=== PATIENT | female | born 1945 | race Caucasian/White ===

== ENCOUNTER → 2018-10-26 | Outpatient (CLI) | payer MEDICARE, OTHER ==
[~2018-10-26] MED LIST: BENA20 PO; CLON.1 PO; LEVSOD100 PO
[2018-10-30 15:06] LABS: HPV 16 Negative (Negative); HPV 18 Negative (Negative); HPV OTHER HR TYPES Negative (Negative)
== END | disposition home or self-care (01) ==
LOC: LAB 15:02 → LAB SHORT 15:02
PROVIDERS: Nurse Practitioner Women's Health
DX: Z12.4 Encounter for screening for malignant neoplasm of cervix (principal); Z91.89 Other specified personal risk factors, not elsewhere classified
CPT/HCPCS: 87624; G0123

== ENCOUNTER 2018-12-21 05:57 | Day surgery (SDC) | payer MEDICARE, OTHER ==
[~2018-12-21] VITALS: Ht 165.1 cm; Wt 71.2 kg
[~2018-12-21 05:57] MED LIST changes: +ASCO500 PO; +CHOL10002; +DIVIGEL1 EAC1 TD; +FISH OIL 1,0001 EACH PO; +GLUC500 PO; +INOSITOL PO; +LOSA50 PO; +Lopressor 25 mg25 MG PO; +MEDR2.5 PO; +MULTI VITAMIN1 EACH PO; +NIACIN PO; +ZINC220 PO
--- NOTE | 2018-12-21 07:08 | NUR ---
Ambulatory in Day Surgery History, Chart, Medications and Allergies reviewed before start of procedure.Patient confirms NPO status and agrees with scheduled surgery. Patient reports completing Chlorhexadine shower X2 prior to admission to hospital.Surgical site prepped with 2% Chlorhexidine cloth wipe.
--- NOTE | 2018-12-21 08:12 | NUR ---
12/21/18 0812 Mikala Menendez PLACED INTRAOPERATIVELY BY DR. CHILDS
[2018-12-21 15:31] LABS: BASOPHILS ABSOLUTE AUTO 0.01 K/mm3 (0.00-0.23); BASOPHILS PERCENT AUTO 0 % (0-2); EOSINOPHILS PERCENT AUTO 0 % (0-6); Hematocrit 39.2 % (33.0-51.0); Hemoglobin 12.7 g/dL (11.5-16.0); IMMATURE GRAN ABSOLUTE AUTO 0.04 K/mm3 (0.00-0.10); IMMATURE GRAN PERCENT AUTO 0 % (0-1); LYMPHOCYTES PERCENT AUTO 3 % (21-46); MONOCYTES ABSOLUTE AUTO 0.21 K/mm3 (0.16-1.47); MONOCYTES PERCENT AUTO 2 % (4-13); Mean Corpuscular HGB 30.2 pg (26.0-34.0); Mean Corpuscular HGB Conc 32.4 g/dL (31.5-36.5); Mean Corpuscular Volume 93 fL (80-100); Mean Platelet Volume 9.5 fL (9.1-12.4); NEUTROPHILS ABSOLUTE AUTO 11.65 K/mm3 (1.96-9.15); NEUTROPHILS PERCENT AUTO 95 % (41-73); Platelet Count 297 K/mm3 (150-400); RDW Coefficient Variation 12.6 % (11.7-14.2); RDW Standard Deviation 43.5 fL (35.1-46.3); White Blood Cell Count 12.31 K/mm3 (4.00-11.30)
--- NOTE | 2018-12-21 18:28 | NUR ---
SUMMARY VSS, PAIN TOLERABLE WITH MORPHINE ROOFING LAYER, OOB W/ ASSIST TO CHAIR, TOLERATED WELL, NO ACUTE CHANGES THIS SHIFT.
--- NOTE | 2018-12-22 05:05 | NUR ---
VAGINAL PACKING REMOVED AT THIS TIME. THERE WAS A PORTION HANGING OUT AND THE PATIENT HAD HAD DIARRHEA WHICH HAD COATED THE LOOSE PACKING, SO FOR SANITARY REASONS IT WAS REMOVED.
--- NOTE | 2018-12-22 06:23 | NUR ---
SHIFT SUMMARY PT IS POD 1 HYSTER WITH SLING. LAMBERT REMOVED THIS MORNING, PACKING REMOVED WELL FOR SANITARY REASONS, PT HAD MULTIPLE BOUTS OF DIARRHA AND THE VAGINAL PACKING REMOVED BECAUSE IT WAS SOILED WITH STOOL. SHE WAS NAUSEATED OVERNIGHT AND MEDICATED X2. PT IS A&O, ABLE TO MAKE NEEDS KNOWN. WILL CTM UNTIL PASS TO NEXT SHIFT.
[2018-12-22 06:51] LABS: BASOPHILS ABSOLUTE AUTO 0.02 K/mm3 (0.00-0.23); BASOPHILS PERCENT AUTO 0 % (0-2); EOSINOPHILS ABSOLUTE AUTO 0.05 K/mm3 (0.00-0.68); EOSINOPHILS PERCENT AUTO 1 % (0-6); Hematocrit 36.8 % (33.0-51.0); Hemoglobin 11.9 g/dL (11.5-16.0); IMMATURE GRAN ABSOLUTE AUTO 0.02 K/mm3 (0.00-0.10); IMMATURE GRAN PERCENT AUTO 0 % (0-1); LYMPHOCYTES ABSOLUTE AUTO 0.59 K/mm3 (0.84-5.20); LYMPHOCYTES PERCENT AUTO 6 % (21-46); MONOCYTES ABSOLUTE AUTO 0.77 K/mm3 (0.16-1.47); MONOCYTES PERCENT AUTO 8 % (4-13); Mean Corpuscular HGB 30.7 pg (26.0-34.0); Mean Corpuscular HGB Conc 32.3 g/dL (31.5-36.5); Mean Corpuscular Volume 95 fL (80-100); Mean Platelet Volume 9.3 fL (9.1-12.4); NEUTROPHILS ABSOLUTE AUTO 8.48 K/mm3 (1.96-9.15); NEUTROPHILS PERCENT AUTO 85 % (41-73); Platelet Count 273 K/mm3 (150-400); RDW Coefficient Variation 12.7 % (11.7-14.2); RDW Standard Deviation 43.8 fL (35.1-46.3); Red Blood Cell Count 3.88 M/mm3 (3.80-5.20); White Blood Cell Count 9.93 K/mm3 (4.00-11.30)
--- NOTE | 2018-12-22 11:00 | NUR ---
PATIENT UP TO BR, VOIDED 400ML. STATES SHE DEFINITELY EMPTIED HER BLADDER. WILL CONT TO MONITOR. DENIES NAUSEA. IBUPROFEN ADM, RENAL MEDICINE PHYSICIAN D/C'D. IVF CONT UNTIL PATIENT TAKING MORE FLUIDS PO. PLAN TO AMBULATE IN [place] AFTER LUNCH. SPOUSE IN ROOM.
--- NOTE | 2018-12-22 12:46 | NUR ---
PATIENT VOIDING WELL, LAST PVR = 188ML. TOLERATING PO. UP AD CHRISTIANO IN ROOM. MINIMAL PINK VAG DRAINAGE.
--- NOTE | 2018-12-22 15:27 | NUR ---
PATIENT VOIDING LARGE AMOUNTS, INSTRUCTED TO VOID OFTEN TO AVOID OVERDISTENDING BLADDER. IVF STOPPED. DENIES PAIN, NAUSEA. CONT TO MONITOR.
--- NOTE | 2018-12-22 18:09 | NUR ---
SHIFT SUMMARY PATIENT STATES SHE FEELS WELL. TOOK IBUPROFEN THIS AM WHEN HOMIC[employer] COMMANDING OFFICER D/C'D, STATES SHE IS COMFORTABLE. SCANT VAG DRAINAGE. TOLERATING PO. AMBULATING IN [place]. VOIDING WELL, PATIENT ENCOURAGED TO EMPTY BLADDER OFTEN. IVF D/C'D. NO C/O AT THIS TIME.
--- NOTE | 2018-12-23 04:24 | NUR ---
shift summary: vss, no acute changes, pt remained a/0 x 4, pleasant/cooperative, independent in room, no n/v, tolerated PO intake. pt requested analgesia per mar for mild pain x 1, states she is able to sleep well. pt up to bathroom with urine output >400 ml. pt with small amount vaginal bleeding, mild cramps.
--- NOTE | 2018-12-23 10:15 | NUR ---
RECENTLY HERE TO SEE PT. REPORTS WILL D/C HOME TODAY.
--- NOTE | 2018-12-23 12:24 | NUR ---
DISCHARGE: PT EATING AND DRINKING WELL. PT VOIDING, PASSING GAS. PT REPORTS NO NAUSEA ANY LONGER. PT REPORTS PAIN CONTROLLED ON IBUPROFEN WHICH PT REPORTS DISCUSSING WITH . PT/FAMILY REPORTS UNDERSTANDING OF DISCHARGE INSTRUCTIONS. PAPERWORK AND BELONGINGS SENT WITH PT.
== END 2018-12-23 12:24 | disposition home or self-care (01) ==
LOC: ORSCMMR 05:57 → ORD 07:30 → SURS 11:17 → ORSCMMR 12-23 12:24
PROVIDERS: Obstetrics & Gynecology Gynecology
PROC: 0UT97ZZ Resection of Uterus, Via Natural or Artificial Opening (ICD-10-PCS; principal; 2018-12-21 07:30)
PROC: 0JQC0ZZ Repair Pelvic Region Subcutaneous Tissue and Fascia, Open Approach (ICD-10-PCS; principal; 2018-12-21 07:30)
PROC: 0TSD0ZZ Reposition Urethra, Open Approach (ICD-10-PCS; principal; 2018-12-21 07:30)
DX: N81.3 Complete uterovaginal prolapse (principal); N81.6 Rectocele; N39.3 Stress incontinence (female) (male); N84.0 Polyp of corpus uteri; D25.9 Leiomyoma of uterus, unspecified; N80.0 Endometriosis of uterus; I10 Essential (primary) hypertension; E03.9 Hypothyroidism, unspecified; Z79.899 Other long term (current) drug therapy
CPT/HCPCS: 36415; 85025; 88307; C1771; J0330; J0690; J1100; J1885; J2250; J2270; J2370; J2405; J2710; J3010; J7120

== ENCOUNTER → 2019-08-16 | Outpatient (CLI) | payer MEDICARE, OTHER ==
[2019-08-16 19:29] LABS: BASOPHILS ABSOLUTE AUTO 0.02 K/mm3 (0.00-0.23); BASOPHILS PERCENT AUTO 0 % (0-2); EOSINOPHILS ABSOLUTE AUTO 0.01 K/mm3 (0.00-0.68); EOSINOPHILS PERCENT AUTO 0 % (0-6); Hematocrit 44.2 % (33.0-51.0); Hemoglobin 13.7 g/dL (11.5-16.0); IMMATURE GRAN ABSOLUTE AUTO 0.01 K/mm3 (0.00-0.10); IMMATURE GRAN PERCENT AUTO 0 % (0-1); LYMPHOCYTES ABSOLUTE AUTO 0.82 K/mm3 (0.84-5.20); LYMPHOCYTES PERCENT AUTO 10 % (21-46); MONOCYTES ABSOLUTE AUTO 0.19 K/mm3 (0.16-1.47); MONOCYTES PERCENT AUTO 2 % (4-13); Mean Corpuscular HGB 29.7 pg (26.0-34.0); Mean Corpuscular Volume 96 fL (80-100); Mean Platelet Volume 10.2 fL (9.1-12.4); NEUTROPHILS ABSOLUTE AUTO 7.23 K/mm3 (1.96-9.15); NEUTROPHILS PERCENT AUTO 87 % (41-73); Platelet Count 348 K/mm3 (150-400); RDW Standard Deviation 44.6 fL (35.1-46.3); Red Blood Cell Count 4.62 M/mm3 (3.80-5.20); White Blood Cell Count 8.28 K/mm3 (4.00-11.30)
== END | disposition home or self-care (01) ==
LOC: LAB 16:20 → LAB SHORT 16:20
PROVIDERS: Internal Medicine Rheumatology
DX: M35.3 Polymyalgia rheumatica (principal)
CPT/HCPCS: 84450; 85025; 85651

== ENCOUNTER → 2021-09-24 | Outpatient (CLI) | payer MEDICARE, OTHER ==
[2021-09-24 19:26] LABS: BASOPHILS ABSOLUTE AUTO 0.05 K/mm3 (0.00-0.23); BASOPHILS PERCENT AUTO 1 % (0-2); EOSINOPHILS ABSOLUTE AUTO 0.02 K/mm3 (0.00-0.68); EOSINOPHILS PERCENT AUTO 0 % (0-6); Hematocrit 44.7 % (33.0-51.0); Hemoglobin 14.5 g/dL (11.5-16.0); IMMATURE GRAN ABSOLUTE AUTO 0.04 K/mm3 (0.00-0.10); IMMATURE GRAN PERCENT AUTO 1 % (0-1); LYMPHOCYTES ABSOLUTE AUTO 1.04 K/mm3 (0.84-5.20); LYMPHOCYTES PERCENT AUTO 13 % (21-46); MONOCYTES ABSOLUTE AUTO 0.34 K/mm3 (0.16-1.47); MONOCYTES PERCENT AUTO 4 % (4-13); Mean Corpuscular HGB 31.4 pg (26.0-34.0); Mean Corpuscular HGB Conc 32.4 g/dL (31.5-36.5); Mean Corpuscular Volume 97 fL (80-100); Mean Platelet Volume 10.7 fL (9.1-12.4); NEUTROPHILS ABSOLUTE AUTO 6.71 K/mm3 (1.96-9.15); NEUTROPHILS PERCENT AUTO 82 % (41-73); Platelet Count 365 K/mm3 (150-400); RDW Coefficient Variation 13.8 % (11.7-14.2); RDW Standard Deviation 48.7 fL (35.1-46.3); Red Blood Cell Count 4.62 M/mm3 (3.80-5.20)
[2021-09-24 20:20] LABS: Albumin, Blood 3.7 g/dL (3.4-5.0); Bilirubin, Total 0.4 mg/dL (0.1-1.0); Bun/Creatinine Ratio 15.8 (12.0-20.0); Calcium, Blood 9.7 mg/dL (8.5-10.1); Creatinine, Blood 0.95 mg/dL (0.40-1.00); Globulin, Blood 3.8 g/dL (2.2-4.0); Potassium, Blood 3.6 mmol/L (3.5-5.5); Total Protein, Blood 7.5 g/dL (6.4-8.2)
== END | disposition home or self-care (01) ==
LOC: LAB SHORT 17:36
PROVIDERS: Internal Medicine Rheumatology
DX: M35.3 Polymyalgia rheumatica (principal)
CPT/HCPCS: 80053; 85025; 85651

== ENCOUNTER → 2022-08-18 | Outpatient (CLI) | payer MEDICARE, OTHER ==
[2022-08-18 14:42] LABS: BASOPHILS ABSOLUTE AUTO 0.08 K/mm3 (0.00-0.23); BASOPHILS PERCENT AUTO 1 % (0-2); EOSINOPHILS PERCENT AUTO 2 % (0-6); Hematocrit 44.7 % (33.0-51.0); Hemoglobin 14.1 g/dL (11.5-16.0); IMMATURE GRAN ABSOLUTE AUTO 0.03 K/mm3 (0.00-0.10); IMMATURE GRAN PERCENT AUTO 0 % (0-1); LYMPHOCYTES ABSOLUTE AUTO 1.83 K/mm3 (0.84-5.20); LYMPHOCYTES PERCENT AUTO 20 % (21-46); MONOCYTES ABSOLUTE AUTO 0.53 K/mm3 (0.16-1.47); MONOCYTES PERCENT AUTO 6 % (4-13); Mean Corpuscular HGB 30.1 pg (26.0-34.0); Mean Corpuscular HGB Conc 31.5 g/dL (31.5-36.5); Mean Corpuscular Volume 96 fL (80-100); Mean Platelet Volume 10.1 fL (9.1-12.4); NEUTROPHILS ABSOLUTE AUTO 6.73 K/mm3 (1.96-9.15); NEUTROPHILS PERCENT AUTO 72 % (41-73); Platelet Count 349 K/mm3 (150-400); RDW Coefficient Variation 14.2 % (11.7-14.2); Red Blood Cell Count 4.68 M/mm3 (3.80-5.20)
[2022-08-18 14:50] LABS: Albumin, Blood 3.9 g/dL (3.4-5.0); Albumin/Globulin Ratio 1.1 (0.8-1.8); Bilirubin, Total 0.3 mg/dL (0.1-1.0); Bun/Creatinine Ratio 13.6 (12.0-20.0); Calcium, Blood 9.1 mg/dL (8.5-10.1); Creatinine, Blood 0.81 mg/dL (0.40-1.00); Globulin, Blood 3.5 g/dL (2.2-4.0); Potassium, Blood 3.7 mmol/L (3.5-5.5); Total Protein, Blood 7.4 g/dL (6.4-8.2)
== END | disposition home or self-care (01) ==
LOC: LAB 13:35 → LAB SHORT 13:35
PROVIDERS: Internal Medicine Rheumatology
DX: M35.3 Polymyalgia rheumatica (principal)
CPT/HCPCS: 80053; 85025; 85651

== ENCOUNTER → 2023-02-17 | Outpatient (CLI) | payer MEDICARE, OTHER ==
[2023-02-17 17:55] LABS: BASOPHILS ABSOLUTE AUTO 0.09 K/mm3 (0.00-0.23); BASOPHILS PERCENT AUTO 1 % (0-2); EOSINOPHILS ABSOLUTE AUTO 0.23 K/mm3 (0.00-0.68); EOSINOPHILS PERCENT AUTO 3 % (0-6); Hematocrit 44.3 % (33.0-51.0); Hemoglobin 14.2 g/dL (11.5-16.0); IMMATURE GRAN ABSOLUTE AUTO 0.02 K/mm3 (0.00-0.10); IMMATURE GRAN PERCENT AUTO 0 % (0-1); LYMPHOCYTES ABSOLUTE AUTO 2.02 K/mm3 (0.84-5.20); LYMPHOCYTES PERCENT AUTO 24 % (21-46); MONOCYTES ABSOLUTE AUTO 0.59 K/mm3 (0.16-1.47); MONOCYTES PERCENT AUTO 7 % (4-13); Mean Corpuscular HGB 30.9 pg (26.0-34.0); Mean Corpuscular HGB Conc 32.1 g/dL (31.5-36.5); Mean Corpuscular Volume 97 fL (80-100); Mean Platelet Volume 10.3 fL (9.1-12.4); NEUTROPHILS ABSOLUTE AUTO 5.33 K/mm3 (1.96-9.15); NEUTROPHILS PERCENT AUTO 64 % (41-73); Platelet Count 337 K/mm3 (150-400); RDW Coefficient Variation 14.1 % (11.7-14.2); RDW Standard Deviation 48.9 fL (35.1-46.3); Red Blood Cell Count 4.59 M/mm3 (3.80-5.20); White Blood Cell Count 8.28 K/mm3 (4.00-11.30)
[2023-02-17 22:20] LABS: Albumin, Blood 3.9 g/dL (3.4-5.0); Albumin/Globulin Ratio 1.2 (0.8-1.8); Bilirubin, Total 0.5 mg/dL (0.1-1.0); Bun/Creatinine Ratio 20.1 (12.0-20.0); Calcium, Blood 9.5 mg/dL (8.5-10.1); Creatinine, Blood 0.95 mg/dL (0.40-1.00); Globulin, Blood 3.3 g/dL (2.2-4.0); Total Protein, Blood 7.2 g/dL (6.4-8.2)
== END | disposition home or self-care (01) ==
LOC: LAB 15:06 → LAB SHORT 15:06
PROVIDERS: Internal Medicine Rheumatology
DX: M35.3 Polymyalgia rheumatica (principal)
CPT/HCPCS: 80053; 85025; 85651

== ENCOUNTER → 2023-06-16 | Outpatient (CLI) | payer MEDICARE, OTHER ==
[2023-06-16 16:53] LABS: BASOPHILS ABSOLUTE AUTO 0.07 K/mm3 (0.00-0.23); BASOPHILS PERCENT AUTO 1 % (0-2); EOSINOPHILS ABSOLUTE AUTO 0.19 K/mm3 (0.00-0.68); EOSINOPHILS PERCENT AUTO 3 % (0-6); Hematocrit 43.4 % (33.0-51.0); IMMATURE GRAN ABSOLUTE AUTO 0.01 K/mm3 (0.00-0.10); IMMATURE GRAN PERCENT AUTO 0 % (0-1); LYMPHOCYTES ABSOLUTE AUTO 2.37 K/mm3 (0.84-5.20); LYMPHOCYTES PERCENT AUTO 36 % (21-46); MONOCYTES ABSOLUTE AUTO 0.61 K/mm3 (0.16-1.47); MONOCYTES PERCENT AUTO 9 % (4-13); Mean Corpuscular HGB 31.1 pg (26.0-34.0); Mean Corpuscular HGB Conc 32.3 g/dL (31.5-36.5); Mean Corpuscular Volume 96 fL (80-100); Mean Platelet Volume 10.6 fL (9.1-12.4); NEUTROPHILS ABSOLUTE AUTO 3.33 K/mm3 (1.96-9.15); NEUTROPHILS PERCENT AUTO 51 % (41-73); Platelet Count 344 K/mm3 (150-400); RDW Coefficient Variation 14.2 % (11.7-14.2); RDW Standard Deviation 49.4 fL (35.1-46.3); White Blood Cell Count 6.58 K/mm3 (4.00-11.30)
[2023-06-16 17:45] LABS: Albumin, Blood 3.9 g/dL (3.4-5.0); Albumin/Globulin Ratio 1.2 (0.8-1.8); Bilirubin, Total 0.4 mg/dL (0.1-1.0); Calcium, Blood 9.2 mg/dL (8.5-10.1); Globulin, Blood 3.3 g/dL (2.2-4.0); Potassium, Blood 3.8 mmol/L (3.5-5.5); Total Protein, Blood 7.2 g/dL (6.4-8.2)
== END | disposition home or self-care (01) ==
LOC: LAB SHORT 11:52 → LAB 11:52
PROVIDERS: Internal Medicine Rheumatology
DX: M35.3 Polymyalgia rheumatica (principal)
CPT/HCPCS: 80053; 85025; 85651

== ENCOUNTER → 2024-03-22 | Outpatient (CLI) | payer MEDICARE, OTHER ==
[2024-03-22 17:24] LABS: Albumin, Blood 3.9 g/dL (3.4-5.0); Bilirubin, Total 0.6 mg/dL (0.1-1.0); Creatinine, Blood 0.91 mg/dL (0.40-1.00); Globulin, Blood 4.1 g/dL (2.2-4.0); Potassium, Blood 3.6 mmol/L (3.5-5.5)
[2024-03-22 17:32] LABS: BASOPHILS ABSOLUTE AUTO 0.05 K/mm3 (0.00-0.23); BASOPHILS PERCENT AUTO 1 % (0-2); EOSINOPHILS PERCENT AUTO 2 % (0-6); Hemoglobin 14.9 g/dL (11.5-16.0); IMMATURE GRAN ABSOLUTE AUTO 0.03 K/mm3 (0.00-0.10); IMMATURE GRAN PERCENT AUTO 1 % (0-1); LYMPHOCYTES ABSOLUTE AUTO 1.47 K/mm3 (0.84-5.20); LYMPHOCYTES PERCENT AUTO 23 % (21-46); MONOCYTES ABSOLUTE AUTO 0.36 K/mm3 (0.16-1.47); MONOCYTES PERCENT AUTO 6 % (4-13); Mean Corpuscular HGB Conc 33.1 g/dL (31.5-36.5); Mean Corpuscular Volume 97 fL (80-100); Mean Platelet Volume 10.2 fL (9.1-12.4); NEUTROPHILS ABSOLUTE AUTO 4.35 K/mm3 (1.96-9.15); NEUTROPHILS PERCENT AUTO 68 % (41-73); Platelet Count 330 K/mm3 (150-400); RDW Coefficient Variation 13.4 % (11.7-14.2); RDW Standard Deviation 47.1 fL (35.1-46.3); Red Blood Cell Count 4.66 M/mm3 (3.80-5.20); White Blood Cell Count 6.36 K/mm3 (4.00-11.30)
== END ==
LOC: LAB SHORT 13:47 → LAB 13:47
PROVIDERS: Internal Medicine Rheumatology
DX: M35.3 Polymyalgia rheumatica (principal); E03.9 Hypothyroidism, unspecified
CPT/HCPCS: 80053; 84443; 85025; 85651

== ENCOUNTER 2024-12-18 08:52 | Day surgery (SDC) | payer MEDICARE, OTHER ==
[~2024-12-18] VITALS: Ht 165.1 cm; Wt 79.8 kg
[2024-12-18] VITALS (16 sets, daily range): BP systolic 103–144; BP diastolic 56–90
[~2024-12-18 08:52] MED LIST changes: +AMLO5 PO; +Acetaminophen 500 MG Tab PO SCH; +CeFAZolin Sodium 2,000 MG in NS 100 ML IV SCH; +Chlorhexidine Mouth Care 15 ML UDC MT SCH; -DIVIGEL1 EAC1 TD; +ESTR2 PO; +FOLI1 PO; +Lactated Ringer's 1,000 ML IV SCH; +METTREX2.5 PO; +OxyCODONE HCL 10 MG TABCR PO SCH; +PRED1 PO; +Tranexamic Acid 100 ML IV SCH
[2024-12-18] MEDS ORDERED: Ropivacaine 0.5% HCl/Pf 123.125 MG,EPINEPHrine HCL 0.25 MG,Ketorolac Tromethamine 15 MG... INFIL SCH (09:20)
[2024-12-18] MEDS ORDERED: Estradiol 1 MG Tab PO SCH (11:20)
[2024-12-18] MEDS ORDERED: Ondansetron HCl 2 MG / ML 2ML Vial IV PRN ×2 (11:25→13:00)
[2024-12-18] MEDS ORDERED: Metoclopramide HCl 5MG / ML 2ML Vial IV PRN (11:25)
[2024-12-18] MEDS ORDERED: OxyCODONE HCL 5 MG TAB PO PRN ×2 (11:25→11:30)
[2024-12-18] MEDS ORDERED: Lactated Ringer's 1,000 ML IV SCH (11:25)
[2024-12-18] MEDS ORDERED: Magnesium Hydroxide Conc 10 ML UDC PO PRN (11:25)
[2024-12-18] MEDS ORDERED: Promethazine HCl 25 MG Tab PO PRN (11:25)
[2024-12-18] MEDS ORDERED: FLU VACC TS2024-25(6MOS UP)/PF 45 MCG/0.5 ML SYRINGE IM SCH (11:30)
[2024-12-18] MEDS ORDERED: Bisacodyl 10 MG Supp PR PRN (11:30)
[2024-12-18] MEDS ORDERED: DiphenhydrAMINE HCL 25 MG Cap PO PRN (11:35)
[2024-12-18] MEDS ORDERED: HYDROmorphone HCl/Pf 1MG SYR IV PRN (11:35)
[2024-12-18] MEDS ORDERED: Ondansetron HCl 2 MG / ML 2ML Vial ONE (11:53)
[2024-12-18] MEDS ORDERED: FentaNYL Citrate 50 MCG/ML 2 ML Injection ONE ×2 (11:53→12:31)
[2024-12-18] MEDS ORDERED: Metoclopramide HCl 5MG / ML 2ML Vial ONE (11:53)
[2024-12-18] MEDS ORDERED: propofoL 20 ML IV ONE (11:53)
[2024-12-18] MEDS ORDERED: Ketorolac Tromethamine 15mg Vial IV SCH (12:00)
[2024-12-18] MEDS ORDERED: propofoL 100 ML IV ONE (12:06)
[2024-12-18] MEDS ORDERED: HYDROmorphone HCl 0.5 MG/0.5 ML SYR ONE (12:53)
[2024-12-18] MEDS ORDERED: HYDROmorphone HCl 0.5 MG/0.5 ML SYR IV PRN ×2 (12:55)
[2024-12-18] MEDS ORDERED: FentaNYL Citrate 50 MCG/ML 2 ML Injection IV PRN (12:55)
[2024-12-18] MEDS ORDERED: Phenylephrine HCl 100 MCG/ML-NS 10MLSYR (1MG/10ML) ONE (13:20)
[2024-12-18] MEDS ORDERED: Ketorolac Tromethamine 30mg Vial ONE (13:24)
[2024-12-18] MEDS ORDERED: Acetaminophen 500 MG Tab PO SCH (16:00)
--- NOTE | 2024-12-18 19:33 | NUR ---
SHIFT SUMMARY PT WAS TIRED POST OP BUT WAS UP TO WORKING w/ THERAPY. EATING, DRINKING, & VOIDED. PAIN WELL CONTROLLED. SURG SITE WNL.
[2024-12-18] MEDS ORDERED: CeFAZolin Sodium 2,000 MG in NS 100 ML IV SCH (20:00)
[2024-12-18] MEDS ORDERED: Docusate Sodium 100 MG Cap PO SCH (21:00)
[2024-12-19 00:40] VITALS: BP 133/68
[2024-12-19 04:02] VITALS: BP 115/58
--- NOTE | 2024-12-19 05:20 | NUR ---
SHIFT SUMMARY POD 1 RIGHT TKA. DRESSING, GABY WRAP AND POLAR PACK IN PLACE TO RIGHT KNEE. PAIN MANAGED BY PO MEDICATION. ABX INFUSED PER ORDERS. MEDICATED X1 FOR NAUSEA. AMBULATING WITH FWW, GB, SBA. IS VOIDING. IV PATENT/SL. WORKED WITH THERAPY DURING DAY SHIFT POST OP. PLAN TO DC HOME TODAY. WILL GIVE REPORT TO OMCOMING RN
[2024-12-19] MEDS ORDERED: Levothyroxine Sodium 0.1 MG Tab PO SCH (06:00)
[2024-12-19 06:58] LABS: BASOPHILS ABSOLUTE AUTO 0.04 K/mm3 (0.00-0.23); BASOPHILS PERCENT AUTO 0 % (0-2); EOSINOPHILS PERCENT AUTO 1 % (0-6); Hematocrit 38.3 % (33.0-51.0); Hemoglobin 12.8 g/dL (11.5-16.0); IMMATURE GRAN ABSOLUTE AUTO 0.01 K/mm3 (0.00-0.10); IMMATURE GRAN PERCENT AUTO 0 % (0-1); LYMPHOCYTES ABSOLUTE AUTO 1.22 K/mm3 (0.84-5.20); LYMPHOCYTES PERCENT AUTO 12 % (21-46); MONOCYTES ABSOLUTE AUTO 1.11 K/mm3 (0.16-1.47); MONOCYTES PERCENT AUTO 11 % (4-13); Mean Corpuscular HGB Conc 33.4 g/dL (31.5-36.5); Mean Corpuscular Volume 99 fL (80-100); Mean Platelet Volume 9.8 fL (9.1-12.4); NEUTROPHILS ABSOLUTE AUTO 7.95 K/mm3 (1.96-9.15); NEUTROPHILS PERCENT AUTO 76 % (41-73); Platelet Count 271 K/mm3 (150-400); RDW Coefficient Variation 13.7 % (11.7-14.2); RDW Standard Deviation 49.2 fL (35.1-46.3); Red Blood Cell Count 3.88 M/mm3 (3.80-5.20); White Blood Cell Count 10.43 K/mm3 (4.00-11.30)
[2024-12-19 07:17] LABS: Bun/Creatinine Ratio 17.6 (12.0-20.0); Calcium, Blood 8.1 mg/dL (8.5-10.1); Creatinine, Blood 0.97 mg/dL (0.40-1.00); Potassium, Blood 3.3 mmol/L (3.5-5.5)
[2024-12-19 07:20] VITALS: BP 113/64
[2024-12-19] MEDS ORDERED: ASPI81CH PO (07:49)
[2024-12-19] MEDS ORDERED: Metoprolol Tartrate 25 MG Tab PO SCH (09:00)
[2024-12-19] MEDS ORDERED: Aspirin 81 MG Chew PO SCH (09:00)
[2024-12-19] MEDS ORDERED: Folic Acid 1 MG TAB PO SCH (09:00)
[2024-12-19] MEDS ORDERED: PredniSONE 1 MG Tab PO SCH (09:00)
[2024-12-19] MEDS ORDERED: AmLODIPine Besylate 5 MG Tab PO SCH (09:00)
[2024-12-19] MEDS ORDERED: Losartan Potassium 50 MG Tab PO SCH (09:00)
--- NOTE | 2024-12-19 09:37 | NUR ---
DISCHARGE PATIENT TOLERATING PO INTAKE, VOIDING, VITALS ARE STABLE. MEDICATED AND TOLERATING PAIN MEDS. DENIES NAUSEA.AMBULATING IN ROOM. CLEARS THERAPY. ALL INSTRUCTIONS READ AND SIGNED. PRESCRIPTIONS CALLED IN TO [facility]. PATIENT LEAVES VIA PRIVATE VEHICLE.
== END 2024-12-19 09:05 | disposition home or self-care (01) ==
LOC: ORSCMMR 08:52 → ORD 10:00 → ORSCMMR 10:00 → SURS 14:36 → ORSCMMR 12-19 09:05
PROVIDERS: Orthopaedic Surgery
PROC: 0SRC0JA Replacement of Right Knee Joint with Synthetic Substitute, Uncemented, Open Approach (ICD-10-PCS; principal; 2024-12-18 10:00)
DX: M17.11 Unilateral primary osteoarthritis, right knee (principal); I10 Essential (primary) hypertension; E03.9 Hypothyroidism, unspecified; Z79.899 Other long term (current) drug therapy
CPT/HCPCS: 36415; 73560-RT; 80048; 85025; 94760; 97116; 97161; 97530; A9270; C1713; C1776; J0171; J0690; J0735; J1171; J1885; J2371; J2405; J2704; J2765; J2795; J3010; J7120; J7512